=== PATIENT | male | born 1945 | race Caucasian/White ===

== ENCOUNTER 2024-03-09 08:34 | Outpatient (CLI) | payer OTHER ==
[~2024-03-09 08:34] MED LIST: ALLO100T PO; DABI150C PO; FLO0.4C PO; HYDR-4353 PO; LOSA-415 PO; PANT20TA2 PO; SOTA80TA73 PO; VITC500T PO
== END 2024-03-09 23:59 | disposition home or self-care (01) ==
LOC: RAD 08:34
PROVIDERS: ATTEND Pediatrics Sports Medicine
DX: M51.360 Other intervertebral disc degeneration, lumbar region with discogenic back pain only (principal); M43.17 Spondylolisthesis, lumbosacral region; M47.817 Spondylosis without myelopathy or radiculopathy, lumbosacral region; M48.07 Spinal stenosis, lumbosacral region; M46.1 Sacroiliitis, not elsewhere classified; G56.21 Lesion of ulnar nerve, right upper limb
CPT/HCPCS: 72131

== ENCOUNTER 2024-08-12 09:24 | Emergency (ER) | payer MEDICARE, BC ==
[~2024-08-12] VITALS: Ht 185.4 cm; Wt 88.6 kg
[~2024-08-12 09:24] MED LIST changes: -FLO0.4C PO; +TAMS-55 PO
--- NOTE | 2024-08-12 10:47 | Physician Documentation ---
History of Present Illness ~ Chief Complaint: Laceration Stated Complaint: ARM LAC Time Seen by MD: 10:15 Primary Medical Doctor: ROYER ANDREW HE IS HAVING YEAR OLD MALE PRESENTS TO THE ED WITH A COMPLAINT OF LEFT ARM PAIN AND LACERATIONS SECONDARY TO A FALL THIS MORNING. HE DENIES ANY HEAD STRIKE. TAKE ELIQUIS BLEEDING IS CURRENTLY CONTROLLED. Day of Onset: August 12, 2024 Tetanus Within 5 Years: Yes Medication Reconciliation Allergies: Coded Allergies: No Known Allergies (Unverified , 06/29/15) Scheduled Allopurinol* (Allopurinol*), 300 MG PO DAILY, (Reported) Ascorbic Acid* (Vitamin C*), 1 TAB PO DAILY, (Reported) Cephalexin*Monohydrate* (Keflex*), 1 CAP PO QID Dabigatran Etexilate Mesylate (Pradaxa), 1 CAP PO BID, (Reported) Hydrocodone Bit/Acetaminophen ([place] 10-325 Tablet), 1-2 TABLET PO Q4H, (Reported) Losartan Potassium* (Cozaar*), 100 MG PO DAILY, (Reported) Pantoprazole Sodium (Protonix), 40 MG PO DAILY, (Reported) Sotalol Hcl* (Betapace*), 80 MG PO BID, (Reported) Tamsulosin Hcl* (Flomax*), 1 CAP PO DAILY, (Reported) Past Medical History Past Medical History: Atrial Fibrillation Past Surgical History: orthopedic surgeries Alcohol Use: None Drug Use: none Lives with: Family Lives In: Home Review of Systems All Other Systems at this time: Reviewed and Negative ROS As stated above in the HPI, otherwise all systems are reviewed and negative. Physical Exam Vital Signs: Temperature: 97.2, Source: Temporal, Heart Rate: 72, Respiratory Rate: 18, BP: 167/84, Pulse Oximetry: 97, Weight: 88.640 Oxygen Flow Rate: 0 Physical Exam General: Alert, no apparent distress. HEENT: PERRL, EOMI, no injection, moist mucous membranes. Neck: Full range of motion. Extremities: Normal range of motion, no deformity. LARGE 10 CM SKIN TEARS ON THE LATERAL ASPECT OF THE LEFT FOREARM 5 CM SKIN TEAR ON THE POSTERIOR ASPECT OF THE LEFT ELBOW Neurologic: Oriented x4. Psychiatric: Normal mood and affect. Skin: Normal color, warm and dry. No edema, no ecchymosis. Progress Results/Orders Results/Orders Completed Orders - SRIDHAR BOTELLO NP Lidocaine/Epi/Tetracaine Top (Lidocaine/ (08/12/24 11:05) Medications Received in ER Medications (Trade) Dose Ordered Sig/Doreen Route PRN Reason Start Time Stop Time Status Last Admin Dose Admin (LIDOcaine/ epiNEPH/ tetracaine top merlin 3ml SYR) 5 ml ONCE ONCE TOP 08/12/24 11:05 08/12/24 11:06 DC 08/12/24 11:14 5 ML Vital Signs 08/12/24 08/12/24 09:34 11:52 Temp 97.2 97.7 Pulse 72 61 Resp 18 16 B/P (MAP) 167/84 166/86 Pulse Ox 97 93 O2 Flow Rate 0 Medical Decision Making Findings Treated for two large skin tears on his left upper extremity. Nursing staff was able to utilize Steri-Strips benzoin to well approximate the wound. Has been controlled patient states that he is up-to-date on tetanus I am going to send him home with Keflex as he states the last time he had a skin tear he developed an infection. Differential Dx:Considerations: Include: Abrasion, Avulsion, Contusion, Laceration, Fracture, Hematoma, Neurovascular injury, Retained foreign body, Other Departure Disposition: 01 HOME / SELF CARE / HOMELESS Impression: Primary Impression: Laceration Condition: Stable Discharge Instructions: Laceration Care, Adult, [id number] Additional Instructions: Keep the area clean Referrals: NO PRIMARY CARE PROVIDER (PCP) Prescriptions Cephalexin*Monohydrate* (Keflex*) 500 Mg Capsule 1 CAP PO QID, #40 CAP Prov: SRIDHAR BOTELLO NP 08/12/24 Signature Scribe Signature: Attestation: The note accurately reflects work and decisions made by me.Sridhar Botello - MANI 08/12/24 15:28 SRIDHAR BOTELLO NP August 12, 2024 10:47
[2024-08-12] MEDS: LIDOcaine/epinephrine/tetracaine TOPICAL sol 3 ML syringe TOP ONE (11:14)
[2024-08-12] MEDS ORDERED: CEPH-585 PO (11:46)
[2024-08-12 11:52] VITALS: BP 166/86; PULSE 61; RESP 16; TEMP 97.7; O2SAT 93
== END 2024-08-12 11:58 | disposition home or self-care (01) ==
LOC: ER 09:25
DX: S51.812A Laceration without foreign body of left forearm, initial encounter (principal); I48.91 Unspecified atrial fibrillation; W19.XXXA Unspecified fall, initial encounter; Y93.89 Activity, other specified; Y92.89 Other specified places as the place of occurrence of the external cause; Y99.8 Other external cause status
CPT/HCPCS: 99283; A6253; A6258; A6402; J3490; J7030; Z7610; A6449